=== PATIENT | female | born 1985 | race Two or more races ===

== ENCOUNTER 2024-07-21 20:05 | Emergency (ER) | payer BC ==
[~2024-07-21] VITALS: Ht 170.2 cm; Wt 94.3 kg
[2024-07-21] MEDS ORDERED: SULF1TAB48 PO (20:19)
[2024-07-21] MEDS ORDERED: CEPH500T PO (20:19)
[2024-07-21 21:04] VITALS: BP 125/79; O2SAT 99
== END 2024-07-21 21:05 | disposition home or self-care (01) ==
LOC: ER 20:05
DX: K11.21 Acute sialoadenitis (principal); Z90.49 Acquired absence of other specified parts of digestive tract
CPT/HCPCS: A4606; A4663